=== PATIENT | female | born 1960 | race Two or more races ===

== ENCOUNTER 2019-05-18 11:13 | Emergency (ER) | payer OTHER ==
[~2019-05-18] VITALS: Ht 167.6 cm; Wt 92.1 kg
[2019-05-18] MEDS ORDERED: TIROSINT50 MCG (11:47)
[2019-05-18] MEDS ORDERED: TOPROL XL100 M1 (11:47)
[2019-05-18] MEDS ORDERED: DOLOGEN CAPLET1 EACH PO (12:04)
[2019-05-18] MEDS ORDERED: ZITHROMAX500 MG PO (12:04)
[2019-05-18] MEDS ORDERED: TUSNEL LIQUID178 ML PO (12:04)
== END 2019-05-18 14:00 | disposition home or self-care (01) ==
LOC: ER 11:13
DX: B34.9 Viral infection, unspecified (principal)